=== PATIENT | female | born 1980 | race African-American/Black ===

== ENCOUNTER 2016-11-01 09:38 | Emergency (ER) | payer MEDICAID, OTHER ==
[~2016-11-01] VITALS: Ht 160 cm; Wt 73.0 kg
[2016-11-01] MEDS: SODIUM CHLORIDE 0.9% 1,000 ML IV ONE (11:19)
[2016-11-01 11:22] LABS: BASOPHILS % 0.8 % (0.0-2.0); EOSINOPHILS % 1.4 % (0.0-5.0); HEMATOCRIT. 36.6 % (36.0-48.0); HEMOGLOBIN. 12.3 g/dL (12.0-16.0); LYMPHOCYTES % 17.1 % (20.0-50.0); MEAN CORPUSCULAR HEMOGLOBIN 28.2 pg (28.0-32.0); MEAN CORPUSCULAR HGB CONC 33.7 g/dL (31.0-37.0); MEAN CORPUSCULAR VOLUME 83.6 fL (81.0-99.0); MEAN PLATELET VOLUME 7.7 fl (7.4-10.4); MONOCYTES % 10.2 % (2.0-8.0); NEUTROPHILS % 70.5 % (40.0-76.0); PLATELET 271 x1000/uL (130-400); RED BLOOD CELL COUNT 4.37 mill/uL (4.2-5.4); RED CELL DISTRIBUTION WIDTH 14.1 % (11.6-14.6)
[2016-11-01 11:32] LABS: CLARITY URINE CLEAR (CLEAR); COLOR URINE YELLOW (YELLOW); GLUCOSE URINE NEGATIVE (NEGATIVE); KETONES URINE NEGATIVE (NEGATIVE); LEUKOCYTE ESTERASE URINE NEGATIVE (NEGATIVE); NITRITE URINE NEGATIVE (NEGATIVE); OCCULT BLOOD URINE TRACE (NEGATIVE); PROTEIN URINE NEGATIVE (NEGATIVE); SPECIFIC GRAVITY URINE 1.022 (1.005-1.030); UROBILINOGEN URINE 0.2 E.U./dL (0.2-1.0)
[2016-11-01 11:42] LABS: ANION GAP 13; CALCIUM 8.7 mg/dL (8.5-10.1); CARBON DIOXIDE 25 mEq/L (21-32); CHLORIDE 103 mEq/L (98-107); INDEX HEMOLYSI 1 (1-3); INDEX ICTERIC 1 (1-4); INDEX LIPEMIC 1 (1-3); UREA NITROGEN BLOOD 12 mg/dL (7-21); eGFR > 60 mL/min (>60)
[2016-11-01 11:44] LABS: *AMPHETAMINES SCREEN URINE NEGATIVE (NEGATIVE); *BARBITURATES SCREEN URINE NEGATIVE (NEGATIVE); *BENZODIAZEPINES SCREEN URINE NEGATIVE (NEGATIVE); *COCAINE SCREEN URINE NEGATIVE (NEGATIVE); CANNABINOID URINE SCREEN NEGATIVE (NEGATIVE); ECSTASY MDMA SCREEN URINE NEGATIVE (NEGATIVE); METHADONE URINE SCREEN NEGATIVE (NEGATIVE); OPIATES URINE SCREEN NEGATIVE (NEGATIVE); PHENCYCLIDINE URINE SCREEN NEGATIVE (NEGATIVE)
[2016-11-01 11:48] LABS: RBC URINE 0-2 /hpf (0-2); WBC URINE 0-2 /hpf (0-2)
[2016-11-01 11:49] LABS: B-HCG QUANTITATIVE 67200 mIU/mL (<3)
[2016-11-01 11:49] LABS: BACTERIA URINE 1+; SQUAMOUS EPITHELIAL CELL URINE FEW /lpf (RARE/1+)
[2016-11-01 13:45] VITALS: BP 117/77
== END 2016-11-01 13:48 | disposition home or self-care (01) ==
LOC: ER 10:58
DX: O20.0 Threatened abortion (principal); Z3A.08 8 weeks gestation of pregnancy
CPT/HCPCS: 36415; 76801; 76817; 80048; 80305; 81001; 84702; 85025; 86850; 86900; 86901; 96360; 99285; J7030; Z7610

== ENCOUNTER 2017-02-23 09:43 | Observation (INO) | payer MEDICAID ==
[~2017-02-23] VITALS: Ht 160 cm; Wt 78.0 kg
[2017-02-23] MEDS ORDERED: PNV1TABL76 MT (10:57)
== END 2017-02-23 12:02 | disposition home or self-care (01) ==
LOC: L&DPROCDR 09:43 → L&D 12:02
PROVIDERS: ADMIT Obstetrics & Gynecology; ATTEND Obstetrics & Gynecology
DX: O26.892 Other specified pregnancy related conditions, second trimester (principal); R10.30 Lower abdominal pain, unspecified; Z3A.24 24 weeks gestation of pregnancy
CPT/HCPCS: G0378

== ENCOUNTER 2017-05-06 15:32 | Observation (INO) | payer MEDICAID ==
[~2017-05-06] VITALS: Ht 160 cm; Wt 77.1 kg
[~2017-05-06 15:32] MED LIST: PNV1TABL76 MT
== END 2017-05-06 16:50 | disposition home or self-care (01) ==
LOC: L&D 15:32
PROVIDERS: ADMIT Obstetrics & Gynecology; ATTEND Obstetrics & Gynecology
DX: O26.893 Other specified pregnancy related conditions, third trimester (principal); R10.9 Unspecified abdominal pain; R06.02 Shortness of breath; Z3A.35 35 weeks gestation of pregnancy
CPT/HCPCS: 99281; G0378

== ENCOUNTER 2024-06-22 09:38 | Emergency (ER) | payer MEDICAID, OTHER ==
[~2024-06-22] VITALS: Ht 160 cm; Wt 70.0 kg
[2024-06-22 09:42] VITALS: O2SAT 100
[2024-06-22 09:44] VITALS: BP 134/96; PULSE 110; RESP 18; TEMP 99.4; O2SAT 100
== END 2024-06-22 13:06 | disposition home or self-care (01) ==
LOC: ER 09:38
DX: J06.9 Acute upper respiratory infection, unspecified (principal); Z98.890 Other specified postprocedural states; Z20.822 Contact with and (suspected) exposure to COVID-19
CPT/HCPCS: 87426; 87804; 99283

== ENCOUNTER 2024-08-24 15:32 | Emergency (ER) | payer OTHER ==
[~2024-08-24] VITALS: Ht 160 cm; Wt 75.0 kg
[2024-08-24 15:36] VITALS: O2SAT 100
[2024-08-24 15:42] VITALS: BP 130/88; PULSE 86; RESP 18; TEMP 36.9; O2SAT 99
[2024-08-24 16:20] LABS: HEMATOCRIT 37.2 % (36.0-48.0); MEAN CORPUSCULAR HEMOGLOBIN 27.4 pg (28.0-32.0); MEAN CORPUSCULAR HGB CONC 32.3 g/dL (31.0-37.0); MEAN CORPUSCULAR VOLUME 84.6 fL (81.0-99.0); PLATELET 309 x1000/uL (130-400); RED BLOOD CELL COUNT 4.39 mill/uL (4.2-5.4); RED CELL DISTRIBUTION WIDTH 15.3 % (11.6-14.6); WHITE BLOOD COUNT 6.6 x1000/uL (4.5-11.0)
[2024-08-24 16:41] LABS: CHLORIDE 107 mEq/L (98-107); POTASSIUM 3.8 mEq/L (3.5-5.1); SODIUM 141 mEq/L (136-145)
[2024-08-24 16:42] LABS: CARBON DIOXIDE 28 mEq/L (21-32)
[2024-08-24 16:43] LABS: CALCIUM 9.3 mg/dL (8.7-10.4)
[2024-08-24 16:47] LABS: CREATININE 0.7 mg/dL (0.6-1.0); GLUCOSE 106 mg/dL (70-105); UREA NITROGEN BLOOD 14 mg/dL (9-23)
[2024-08-24 17:49] LABS: CLARITY URINE TURBID (CLEAR); COLOR URINE ORANGE (YELLOW); GLUCOSE URINE NEGATIVE (NEGATIVE); KETONES URINE TRACE (NEGATIVE); LEUKOCYTE ESTERASE URINE 1+ (NEGATIVE); NITRITE URINE NEGATIVE (NEGATIVE); OCCULT BLOOD URINE 3+ (NEGATIVE); PH URINE 5.5 (4.5-8.0); PROTEIN URINE 3+ (NEGATIVE); SPECIFIC GRAVITY URINE 1.028 (1.005-1.030)
[2024-08-24] MEDS ORDERED: SULF1TAB48 MT (20:36)
[2024-08-24 21:45] LABS: BACTERIA URINE 2+; RBC URINE TNTC /hpf (0-2); SQUAMOUS EPITHELIAL CELL URINE 2+ /lpf (RARE/1+)
== END 2024-08-24 20:45 | disposition home or self-care (01) ==
LOC: ER 15:32
DX: N39.0 Urinary tract infection, site not specified (principal); D25.1 Intramural leiomyoma of uterus; Z98.51 Tubal ligation status; Z98.890 Other specified postprocedural states; Z79.899 Other long term (current) drug therapy
CPT/HCPCS: 36415; 76830; 76856; 80048; 81003; 81025; 85027; 99284

== ENCOUNTER 2025-03-06 15:21 | Emergency (ER) | payer OTHER ==
[~2025-03-06] VITALS: Ht 167.6 cm; Wt 68.0 kg
[~2025-03-06 15:21] MED LIST changes: +SULF1TAB48 MT
[2025-03-06 15:48] VITALS: O2SAT 100
[2025-03-06] MEDS ORDERED: DEX2 MT (18:49)
[2025-03-06] MEDS ORDERED: PROM25TA13 MT (18:49)
[2025-03-06] MEDS: DEXAMETHASONE 10 MG/ML VIAL PO ONE (18:53)
[2025-03-06 18:59] VITALS: BP 133/101; PULSE 83; RESP 18; TEMP 36.8; O2SAT 99
== END 2025-03-06 19:01 | disposition home or self-care (01) ==
LOC: ER 15:21
DX: B34.9 Viral infection, unspecified (principal); R05.9 Cough, unspecified; Z98.51 Tubal ligation status; Z20.822 Contact with and (suspected) exposure to COVID-19
CPT/HCPCS: 99284; 71045; 87426; 81025; 87430; 87070; J1100